=== PATIENT | male | born 1990 | race African-American/Black ===

== ENCOUNTER 2016-06-09 17:36 | Emergency (ER) | payer BC ==
[~2016-06-09] VITALS: Ht 180.3 cm; Wt 69.7 kg
[~2016-06-09 17:36] MED LIST: AUGMENTIN875 MG PO; NAPROSYN500 MG PO; TRAMADOL HCL50 MG PO; ULTRAM50 MG PO
[2016-06-09] MEDS ORDERED: MOTRIN800 MG PO (18:31)
[2016-06-09] MEDS ORDERED: FLEXERIL10 MG PO (18:31)
[2016-06-09] MEDS ORDERED: PERCOCET 5/31 TABLET PO (18:31)
[2016-06-09 18:45] VITALS: BP 157/86
== END 2016-06-09 18:45 | disposition home or self-care (01) ==
LOC: EME 17:36
DX: S20.212A Contusion of left front wall of thorax, initial encounter (principal); Y93.61 Activity, american tackle football; W03.XXXA Other fall on same level due to collision with another person, initial encounter; F17.200 Nicotine dependence, unspecified, uncomplicated
CPT/HCPCS: 71020; 99281; 99283

== ENCOUNTER 2017-06-19 10:29 | Emergency (ER) | payer OTHER ==
[~2017-06-19] VITALS: Ht 175.3 cm; Wt 68.5 kg
[~2017-06-19 10:29] MED LIST changes: +FLEXERIL10 MG PO; +MOTRIN800 MG PO; +PERCOCET 5/31 TABLET PO
[2017-06-19] MEDS ORDERED: FLEXERIL10 MG PO (12:58)
[2017-06-19] MEDS ORDERED: MOTRIN800 MG PO (12:58)
[2017-06-19 13:12] VITALS: BP 131/78
== END 2017-06-19 13:13 | disposition home or self-care (01) ==
LOC: EME 10:29
DX: S40.011A Contusion of right shoulder, initial encounter (principal); W03.XXXA Other fall on same level due to collision with another person, initial encounter; Y93.61 Activity, american tackle football; F17.200 Nicotine dependence, unspecified, uncomplicated; Z88.6 Allergy status to analgesic agent
CPT/HCPCS: 73030; 99281; 99283

== ENCOUNTER 2017-08-12 17:35 | Emergency (ER) | payer OTHER ==
[~2017-08-12] VITALS: Ht 175.3 cm; Wt 71.6 kg
[2017-08-12] MEDS ORDERED: FLEXERIL5 MG PO (20:47)
[2017-08-12] MEDS ORDERED: MOTRIN600 MG PO (20:47)
[2017-08-12 21:18] VITALS: BP 138/83
== END 2017-08-12 21:18 | disposition home or self-care (01) ==
LOC: EME 17:35
DX: S16.1XXA Strain of muscle, fascia and tendon at neck level, initial encounter (principal); W03.XXXA Other fall on same level due to collision with another person, initial encounter; Y93.61 Activity, american tackle football; F17.200 Nicotine dependence, unspecified, uncomplicated; Z88.6 Allergy status to analgesic agent; Z88.5 Allergy status to narcotic agent
CPT/HCPCS: 72040; 99281; 99283